=== PATIENT | male | born 1975 | race Caucasian/White ===

== ENCOUNTER 2016-06-22 22:31 | Emergency (ER) | payer OTHER ==
[~2016-06-22] VITALS: Ht 180.3 cm; Wt 102.3 kg
[2016-06-22 22:39] VITALS: BP 119/73; PULSE 76; RESP 18; O2SAT 97
--- NOTE | 2016-06-22 23:03 | ED.REPORT ---
HPI-Dyspnea / Wheezing Date of Service Jun 22, 2016 ED Provider: Herve Alamo MD A 41 year old male with a history of asthma, sleep apnea, and nightly CPAP use presents to the ED complaining of shortness of breath and "chest heaviness." The pt woke at 06:00 today with these symptoms, which have continued all day. He is concerned because when he is exposed to an allergen such symptoms usually progress over a matter of hours to days, but began suddenly today. The pt denies chest pain or leg pain and states that he has not used an inhaler in several years. Nursing Notes Stated Complaint: SHORTNESS OF BREATH/WHEEZING/FATIGUE Chief Complaint: Respiratory Complaints Nursing Notes Reviewed: Yes Allergies: Coded Allergies: No Known Allergies (Unverified Allergy, Unknown, 06/22/16) Scheduled Prednisone (PredniSONE) 20 Mg Tablet 20 MG PO TID General Time Seen by MD: 22:59 Chief Complaint Shortness of breath Hx Obtained From: Patient Arrived By: Walk-in Sudden in Onset?: Yes Onset Occurred: 13 - 16 hours ago Symptom Duration: Since onset Recent Healthcare: No recent doctor visit, No recent hospitalization Similar Sx Previous: Yes Past Medical History Past Medical History asthma CPAP sleep apnea Past Surgical History none reported Smoking History Unknown if Ever Smoker Social History Other Social History: Good social support Ambulatory Status Independent Review of Systems Review of Systems Note: chest heaviness Constitutional: Denies: Fever Respiratory: Reports: Shortness of breath, Denies: Non-productive cough Cardiovascular: Denies: Chest pain Musculoskeletal: Denies: Back pain, Extremity pain Skin: Denies Rash Complete sys rev & neg: except as marked. Physical Exam Initial Vital Signs Vital Signs (First) Date Time Temp Pulse Resp B/P Pulse Ox O2 Delivery O2 Flow Rate FiO2 06/22/16 22:39 36.6 76 18 119/73 97 Room Air Initial VS: Reviewed, Vital signs normal General/Constitutional: Awake, Alert Neck: Atraumatic, Supple, Full range of motion Respiratory / Chest: Atraumatic, Breath sounds = bilat, No respiratory distress tight expiratory wheezing in all lung [place], nonfocal Cardiovascular: Heart rate NL, Regular rhythm, Heart sounds NL ENT: Atraumatic, Airway patent, Mucous membranes moist Abdomen: Atraumatic, Soft, Non-tender Back: Atraumatic, Full range of motion Lower Extremity / Pelvis / MS: Atraumatic, Full range of motion, No edema no calf tenderness Skin: Atraumatic, Color NL, No rash, Warm, Dry Neurologic: Oriented X3, Speech NL, No motor deficits, No sensory deficits Head / Eyes: Atraumatic, Normocephalic, PERRL, EOMI Upper Extremity / MS: Atraumatic, Full range of motion Psychiatric: Affect NL, Mood NL Interpretation & Diagnostics ECG Interpretation ECG Interpretation: normal sinus rhythm with a rate of [address]/T wave changes Time: 23:35 Interpreted by: ED physician Re-Eval/Medical Decision Med Decision/Clinical Course 41-year-old male who has an acute exacerbation of asthma with tight wheezing in all lung l[place] since this morning. EKG is normal. His wheezing improved dramatically with the nebulizer treatment. He will be discharged home with albuterol metered-dose inhaler with spacer and a prescription for prednisone. Return as needed. Source of Hx: Old records Re-Evaluation/Progress : Time of Eval: 00:21 Patient Status: Condition improved Re-Evaluation/Progress Note: Pt rechecked, whose breathing has improved. He is informed of his diagnosis and the plan for discharge. The pt understands and agrees with the plan. All questions are addressed at this time. Counseled Regarding: Diagnosis, Lab results, Need for follow-up, When/why to return to ED Discharge & Departure Impression: Primary Impression: Asthma Asthma severity: mild intermittent Asthma complication type: with acute exacerbation Qualified Code: J45.21 - Mild intermittent asthma with (acute) exacerbation Disposition: Home Discharge Condition All VS Reviewed: Yes Condition: Stable Patient Instructions: Asthma (ED) Additional Instructions: Albuterol inhaler with spacer, 2 puffs every 4-6 hours as needed, #1 MDI dispensed. Prednisone 20 mg by mouth 3 times a day, first dose given here and # 15 prescription. Follow up with primary provider as needed. Referrals: OTHER,PHYSICIAN (PCP) Scribe Attestation Portions of this note were transcribed by Thomas Wilson. I, Dr. Alamo personally performed the history, physical exam and medical decision-making; I reviewed and confirmed the accuracy of the information in the transcribed note. Signed by: Stephanie Dixon, 06/23/2016 and 0030. Herve Alamo MD Jun 22, 2016 23:02 THOMAS WILSON Jun 22, 2016 23:19
[2016-06-22] MEDS ORDERED: Albuterol-Ipratropium 3 mL Inhalation Solution NEB ONE (23:10)
[2016-06-22] MEDS ORDERED: _Albuterol-HFA 60 Puff Inhaler INHALATION PRN (23:10)
[2016-06-22 23:36] VITALS: RESP 20; O2SAT 97
[2016-06-23] MEDS ORDERED: predniSONE 20 mg Tablet PO ONE (00:25)
[2016-06-23] MEDS ORDERED: PRE20 PO (00:27)
[2016-06-23 00:43] VITALS: BP 111/83; PULSE 85; RESP 16; O2SAT 93
== END 2016-06-23 00:45 | disposition home or self-care (01) ==
LOC: SED 22:31
DX: J45.21 Mild intermittent asthma with (acute) exacerbation (principal); G47.30 Sleep apnea, unspecified; Z79.52 Long term (current) use of systemic steroids
CPT/HCPCS: 93005; 94640; 94664; 99284; J7620